=== PATIENT | male | born 1975 | race African-American/Black ===

== ENCOUNTER 2018-05-23 20:51 | Emergency (ER) | payer OTHER ==
[~2018-05-23] VITALS: Ht 175.3 cm; Wt 72.1 kg
[2018-05-23 20:54] VITALS: BP 121/83
[2018-05-23] MEDS ORDERED: NORFLEX100 MG PO (21:52)
[2018-05-23] MEDS ORDERED: NAPROSYN500 MG PO (21:52)
== END 2018-05-23 22:03 | disposition home or self-care (01) ==
LOC: ER 20:51
DX: S39.012A Strain of muscle, fascia and tendon of lower back, initial encounter (principal); X58.XXXA Exposure to other specified factors, initial encounter; Y93.89 Activity, other specified; Y92.89 Other specified places as the place of occurrence of the external cause; Y99.8 Other external cause status